=== PATIENT | female | born 1955 | race Caucasian/White ===

== ENCOUNTER → 2021-04-18 | Outpatient (CLI) | payer MEDICARE | LOC: HEART 5 08:49 | DX: I20.9 Angina pectoris, unspecified (principal) | CPT/HCPCS: 78452; 93306; A9502; J2785 ==

== ENCOUNTER 2021-05-30 16:31 | Inpatient (IN) | payer MEDICARE, OTHER ==
[~2021-05-30] VITALS: Ht 157.5 cm; Wt 77.1 kg
[2021-05-30 19:51] LABS: HEMOGLOBIN 14.1 gm/dl (12.3-15.3); RED BLOOD COUNT 5.09 M/UL (4.00-5.10); WHITE BLOOD COUNT 8.4 K/UL (4.5-11.0)
[2021-05-31] MEDS ORDERED: OMEPRAZOLE20 MG PO (00:43)
[2021-05-31] MEDS ORDERED: OMNICEF 300 MG300 MG PO (00:43)
[2021-05-31] MEDS ORDERED: ONDANSETRON ODT4 MG PO (00:44)
[2021-05-31] MEDS ORDERED: SUCRALFATE1 GM/10 ML PO (00:45)
[2021-05-31] MEDS ORDERED: LOPRESSOR 25 MG25 MG PO (00:46)
[2021-05-31] MEDS ORDERED: TIZANIDINE HCL4 MG PO (00:47)
[2021-05-31] MEDS ORDERED: VISTARIL 50 MG50 MG PO (00:47)
[2021-05-31] MEDS ORDERED: AMLODIPINE BES2.5 MG PO (00:48)
[2021-05-31] MEDS ORDERED: NITROGLYCERIN0.4 MG SL (00:49)
[2021-05-31] MEDS ORDERED: LISINOPRIL40 MG PO (00:49)
[2021-05-31] MEDS ORDERED: PRIMIDONE50 MG PO (00:50)
[2021-06-01 06:26] LABS: HEMOGLOBIN 13.4 gm/dl (12.3-15.3); RED BLOOD COUNT 4.85 M/UL (4.00-5.10); WHITE BLOOD COUNT 7.5 K/UL (4.5-11.0)
[2021-06-01] MEDS ORDERED: ZOFRAN 4 MG TAB4 MG PO (09:25)
[2021-06-01] MEDS ORDERED: POTASSIUM CHLO20 ME2 PO (09:25)
== END 2021-06-01 11:57 | disposition home or self-care (01) | DRG 641 ==
LOC: ER1 16:31 → CDU 21:31 → MED SURG 4 21:31
PROVIDERS: Internal Medicine; Physician Assistant; ADMIT Internal Medicine
DX: E87.6 Hypokalemia (principal); N39.0 Urinary tract infection, site not specified; E87.2 Acidosis; Z20.822 Contact with and (suspected) exposure to COVID-19; R11.2 Nausea with vomiting, unspecified; R74.01 Elevation of levels of liver transaminase levels; M19.90 Unspecified osteoarthritis, unspecified site; Z96.611 Presence of right artificial shoulder joint; E87.3 Alkalosis; K76.0 Fatty (change of) liver, not elsewhere classified; K21.9 Gastro-esophageal reflux disease without esophagitis; I45.10 Unspecified right bundle-branch block; I45.81 Long QT syndrome; I10 Essential (primary) hypertension; F17.210 Nicotine dependence, cigarettes, uncomplicated; Z87.11 Personal history of peptic ulcer disease; Z90.49 Acquired absence of other specified parts of digestive tract; Z82.49 Family history of ischemic heart disease and other diseases of the circulatory system
CPT/HCPCS: 36415; 36600; 71045; 80048; 80053; 82550; 82553; 82803; 83735; 83874; 84100; 84132; 84439; 84443; 84484; 85025; 85027; 93005; 99285; C9113; G0378; J2550; J3480; U0002

== ENCOUNTER → 2021-08-24 | Outpatient (CLI) | payer MEDICARE, OTHER ==
[~2021-08-24] MED LIST: AMLODIPINE BES2.5 MG PO; LIPITOR40 MG PO; LISINOPRIL40 MG PO; LOPRESSOR 25 MG25 MG PO; NITROGLYCERIN0.4 MG SL; OMEPRAZOLE20 MG PO; OMNICEF 300 MG300 MG PO; ONDANSETRON ODT4 MG PO; POTASSIUM CHLO20 ME2 PO; PRIMIDONE50 MG PO; SUCRALFATE1 GM/10 ML PO; TIZANIDINE HCL4 MG PO; VISTARIL 50 MG50 MG PO; ZOFRAN 4 MG TAB4 MG PO
[2021-08-24 10:21] LABS: HEMOGLOBIN 11.8 gm/dl (12.3-15.3); RED BLOOD COUNT 4.28 M/UL (4.00-5.10); WHITE BLOOD COUNT 10.6 K/UL (4.5-11.0)
== END ==
LOC: LAB 09:52
PROVIDERS: Internal Medicine Cardiovascular Disease
DX: R94.39 Abnormal result of other cardiovascular function study (principal); I20.9 Angina pectoris, unspecified; I10 Essential (primary) hypertension; I45.81 Long QT syndrome; R55 Syncope and collapse
CPT/HCPCS: 36415; 71046; 80048; 85025

== ENCOUNTER 2021-10-07 12:11 | Observation (INO) | payer MEDICARE, OTHER ==
[~2021-10-07] VITALS: Ht 157.5 cm; Wt 76.7 kg
[2021-10-07 12:56] LABS: HEMOGLOBIN 11.5 gm/dl (12.3-15.3); RED BLOOD COUNT 4.1 M/UL (4.00-5.10); WHITE BLOOD COUNT 8.5 K/UL (4.5-11.0)
[2021-10-07] MEDS ORDERED: ATORVASTATIN CA40 MG PO (15:33)
[2021-10-07] MEDS ORDERED: ARTHRITIS PAIN150 GM TOP (15:34)
[2021-10-07] MEDS ORDERED: MELOXICAM15 MG PO (15:36)
[2021-10-07] MEDS ORDERED: PHENERGAN 25 MG25 M1 PO (15:37)
[2021-10-07] MEDS ORDERED: PRIMIDONE50 MG PO (15:38)
--- NOTE | 2021-10-08 01:56 | NUR ---
PATIENT BP WAS 187/92, MD MADE AWRE NEW ORDERS PLACED
[2021-10-08 02:21] LABS: HEMOGLOBIN 10.6 gm/dl (12.3-15.3); RED BLOOD COUNT 3.88 M/UL (4.00-5.10); WHITE BLOOD COUNT 7.3 K/UL (4.5-11.0)
== END 2021-10-08 16:39 | disposition home or self-care (01) ==
LOC: ER1 12:11 → CDU 14:46 → M/S 14:46
PROVIDERS: Physician Assistant; ADMIT Internal Medicine
DX: F10.129 Alcohol abuse with intoxication, unspecified (principal); S01.91XA Laceration without foreign body of unspecified part of head, initial encounter; N17.9 Acute kidney failure, unspecified; I16.0 Hypertensive urgency; I10 Essential (primary) hypertension; D64.9 Anemia, unspecified; E87.6 Hypokalemia; R82.5 Elevated urine levels of drugs, medicaments and biological substances; E78.5 Hyperlipidemia, unspecified; I25.10 Atherosclerotic heart disease of native coronary artery without angina pectoris; F17.200 Nicotine dependence, unspecified, uncomplicated; Z20.822 Contact with and (suspected) exposure to COVID-19; Z88.2 Allergy status to sulfonamides; Z88.1 Allergy status to other antibiotic agents; Z79.1 Long term (current) use of non-steroidal anti-inflammatories (NSAID); Z79.899 Other long term (current) drug therapy; W19.XXXA Unspecified fall, initial encounter; Y90.7 Blood alcohol level of 200-239 mg/100 ml
CPT/HCPCS: ECHO; 12001; 36415; 70450; 71045; 72125; 72170; 72220; 80053; 80307; 81001; 82550; 82553; 83735; 84132; 84484; 85025; 87086; 90471; 90715; 93005; 93306; 93971; 96374; 96375; 99285; G0378; G0480; J0696; J2060; U0002